=== PATIENT | female | born 1985 | race Caucasian/White ===

== ENCOUNTER 2022-05-22 17:23 | Emergency (ER) | payer OTHER ==
[2022-05-22] MEDS ORDERED: Sodium Chloride 0.9% 10 ML Syringe FLUSH PRN (17:58)
[2022-05-22 18:19] LABS: ESTIMATED GFR 84 mL/min (>60)
[2022-05-22] MEDS ORDERED: Acetaminophen/HYDROcodone 325-5 MG Tab PO ONE (18:21)
[2022-05-22] MEDS: Sodium Chloride 0.9% 10 ML Syringe FLUSH ONE ×2 (18:26→18:58)
[2022-05-22] MEDS ORDERED: Sodium Chloride 0.9% 50 ML IV SCH (18:30)
[2022-05-22] MEDS ORDERED: Iopamidol 612 MG/ML 100 ML Bottle IV SCH (18:30)
[2022-05-22] MEDS ORDERED: HYDROmorphone 1 MG/ML Syringe IVPUSH ONE (19:28)
== END 2022-05-22 20:01 | disposition home or self-care (01) ==
LOC: JP.ED 17:23
DX: K85.91 Acute pancreatitis with uninfected necrosis, unspecified (principal); F17.210 Nicotine dependence, cigarettes, uncomplicated; Z88.1 Allergy status to other antibiotic agents; Z79.01 Long term (current) use of anticoagulants; Z79.899 Other long term (current) drug therapy
CPT/HCPCS: 36415; 74177; 80053; 81001; 83605; 83690; 85025; 86140; 96374; 99283; 99284; A9270; J1170; J3490; Q9967